=== PATIENT | male | born 1955 | race Caucasian/White ===

== ENCOUNTER 2023-07-30 06:10 | Day surgery (SDC) | payer BC, MEDICARE, SELFPAY ==
--- NOTE | 2023-06-26 11:02 | CM ---
Patient is scheduled for cervical spine surgery on 07/30/23. Spoke with patient prior to surgery via telephone. Introduced role of the Orthopedic Navigator. Patient reports that he lives with his in a two story home. There are two steps to enter
and a flight of steps to the second floor. He currently functions independently. He has a cervical collar. He has never had VN services.
Discussed orthopedic program, post surgical plans and tentative plan for patient to return home when directed by surgeon. Patient is in agreement with tentative plan and will have support from his when he goes home.
Plan: Orthopedic Navigator will remain available to assist with the care of patient and will reassess discharge needs after surgery.
[2023-07-14 09:46] VITALS: BMI 37.5
[2023-07-14 10:33] LABS: Hematocrit 41.2 % (39.0-52.0); Hemoglobin 13.9 g/dL (13.0-18.0); Mean Corp Hgb Conc. 33.7 g/dL (33.0-37.0); Mean Corpuscular Hgb 30.3 pg (27.0-31.0); Mean Corpuscular Volume 89.8 fL (80.0-94.0); Mean Platelet Volume 10.6 fL (7.4-10.4); Platelet Count 181 10^3/uL (130-400); Red Blood Cell Count 4.59 10^6/uL (4.70-6.10); Red Cell Dist. Width 12.6 % (11.5-14.5); White Blood Cell Count 5.5 10^3/uL (4.8-10.8)
[2023-07-14 10:57] LABS: ALT (SGPT) 33 U/L (0-50); AST (SGOT) 29 U/L (17-59); Alkaline Phosphatase 79 U/L (38-126); Blood Urea Nitrogen 25 mg/dl (9-20); Calcium 9.9 mg/dl (8.4-10.2); Carbon Dioxide 27 mmol/L (22-30); Chloride 106 mmol/L (98-107); Estimated Creatinine Clearance 68 ml/min; Glucose 90 mg/dl (70-99); Potassium 3.9 mmol/L (3.5-5.1); Sodium 137 mmol/L (135-145); Total Bilirubin 1.1 mg/dl (0.2-1.3); eGFR > 60.00
[2023-07-14 14:56] VITALS: BMI 37.5
[2023-07-30] VITALS (16 sets, daily range): BP systolic 110–154; BP diastolic 64–82; PULSE 82–89; O2SAT 94–96
[2023-07-30] MEDS: TYLENOL 1000 MG PO (09:34)
[2023-07-30] MEDS: SKELAXIN 800 MG PO (09:34)
[2023-07-30] MEDS: CELEBREX 200 MG PO (09:34)
[2023-07-30] MEDS: LYRICA 150 MG PO (09:35)
[2023-07-30] MEDS: NORMOSOL-R 1000 IV ×3 (09:36→22:45)
--- NOTE | 2023-07-30 11:38 | CM ---
Reviewed chart. Patient is here for planned cervical spine surgery with Dr. Chase. Met with patient at bedside. Confirmed information previously obtained for assessment and discussed discharge plans. Patient continues to plan to return home at
discharge. He will have support from his (who is a nurse) when he goes home. Reviewed that he will work with PT/OT after surgery and that discharge needs will depend on his functional status. However, no needs currently identified.
Patient has a cervical collar. He has access to a cane and rolling walker if either are needed.
Patient will use [facility] pharmacy for discharge prescriptions.
[2023-07-30] MEDS: ULTRAM 50 MG PO ×2 (14:55→20:00)
[2023-07-30] MEDS: TYLENOL PO ×2 (16:44→21:41)
[2023-07-30] MEDS: LIPITOR 80 MG PO (17:43)
[2023-07-30] MEDS: ULTRAM PO (17:47)
[2023-07-30] MEDS: ANCEF 5 IV (18:23)
[2023-07-30] MEDS: SENOKOT 17.1999999999999993 MG PO (19:48)
[2023-07-30] MEDS: COLACE 100 MG PO (19:48)
--- NOTE | 2023-07-30 20:01 | PTCARENOTE ---
Received patient from PACU around 1400 via bed in stable condition. Soft cervical collar in place. Dressing C/D/I. Patient oriented to room. Call de la torre in reach.
[2023-07-30] MEDS: NEURONTIN 400 MG PO (21:34)
[2023-07-30] MEDS: LYRICA 75 MG PO (21:34)
[2023-07-31] MEDS: ULTRAM PO ×2 (02:00→06:28)
[2023-07-31 03:05] VITALS: BP 124/70
[2023-07-31] MEDS: ANCEF 5 IV (03:54)
[2023-07-31] MEDS: TYLENOL 1000 MG PO ×2 (03:55→09:07)
[2023-07-31 04:56] LABS: Hematocrit 39.3 % (39.0-52.0); Hemoglobin 13.6 g/dL (13.0-18.0)
[2023-07-31 05:31] LABS: Blood Urea Nitrogen 19 mg/dl (9-20); Calcium 9.1 mg/dl (8.4-10.2); Carbon Dioxide 26 mmol/L (22-30); Chloride 97 mmol/L (98-107); Estimated Creatinine Clearance 81 ml/min; Glucose 136 mg/dl (70-99); Potassium 3.5 mmol/L (3.5-5.1); Sodium 136 mmol/L (135-145); eGFR > 60.00
[2023-07-31 08:00] VITALS: BP 122/61
[2023-07-31] MEDS: COLACE 100 MG PO (08:58)
[2023-07-31] MEDS: NORMOSOL-R IV (08:59)
[2023-07-31] MEDS: TOPROL XL 25 MG PO (08:59)
[2023-07-31] MEDS: SENOKOT 17.1999999999999993 MG PO (08:59)
[2023-07-31] MEDS: NEURONTIN 400 MG PO (08:59)
[2023-07-31] MEDS: LYRICA 75 MG PO (09:07)
[2023-07-31] MEDS: ULTRAM 50 MG PO (09:07)
--- NOTE | 2023-07-31 10:07 | CM ---
Reviewed chart and held rounds with PT and OT. Patient is here for planned cervical spine surgery with Dr. Chase. Met with patient at bedside. Confirmed information previously obtained for assessment and discussed discharge plans. Patient continues
to plan to return home at discharge. He will have support from his (who is a nurse) when he goes home. Reviewed that he will work with PT/OT after surgery and that discharge needs will depend on his functional status. However, no needs
currently identified.
Patient has a cervical collar. He has access to a cane and rolling walker if either are needed.
Patient will use [facility] pharmacy for discharge prescriptions.
--- NOTE | 2023-07-31 11:49 | W.PN.ORTHO ---
Today's Communication / Plan
-
d/c
Assessment
.
Distal Motor Intact: Yes
Dressing:
Clean, dry and intact.
Plan
.
Surgery / Date: C4-5 anterior fusion, partial corpectomy of C5.
Activity:
Out of bed.
PT/OT
Discharge Plan: Home
Subjective
.
.:
Patient resting comfortably.
Vital Signs and Labs
.
Vital Signs and Labs:
Lab Results
07/31/23 03:47
07/31/23 03:47
Temp Pulse Resp BP Pulse Ox
97.9 F 77 16 121/66 94
07/31/23 08:00 07/31/23 08:59 07/31/23 08:00 07/31/23 08:59 07/31/23 08:00
Physical Exam
-
HEENT: No pallor, cyanosis, or jaundice. Throat clear.
NECK: Supple. No JVD.
RESPIRATORY: Lungs clear to auscultation.
CVS: S1, S2 normal. RRR.� No murmur, rub or gallop.
ABDOMEN: Soft, non-tender. No distension. BS+/normal.
EXTREMITIES: strength equal, no calf pain with palpation
KNOT TIER: AOx3. No focal deficits. mainspring winder grossly intact
--- NOTE | 2023-07-31 11:55 | W.DS.TRANS ---
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
-
Discharge Instructions:
Sleep Apnea Risk Intermediate
Discharge Diagnosis/Procedures C4-5 anterior fusion, partial corpectomy of C5
Dr. Chase 07/30/23
Diet As tolerated
Activity No strenuous activity
Driving Restrictions No driving
Instructions:
Stand-Alone Forms: [facility] Cervical D/C Inst.
Changes to Home Medications: Yes
Discharge Medications:
DC Medications w/original date entered in [employer]
atorvastatin 40 mg tablet 80 mg PO QPM 12/27/09
metoprolol succinate 50 mg tablet,extended release 24 hr 50 mg PO DAILY 12/27/09
aspirin 81 mg chewable tablet 81 mg PO DAILY 07/09/23
gabapentin 100 mg capsule 200 mg PO DAILY 07/09/23
gabapentin 400 mg capsule 400 mg PO HS 07/09/23
multivitamin 1 tab PO DAILY 07/09/23
triamterene 50 mg capsule 100 mg PO DAILY 07/09/23
Saccharomyces boulardii 250 mg capsule (Florastor) 250 mg PO BID #1 cap 07/31/23
acetaminophen 325 mg capsule (Tylenol) 650 mg (2 x 325 mg) PO QID #2 caps 07/31/23
cephalexin 500 mg capsule 500 mg PO QID infection prevention #20 caps 07/31/23
docusate sodium 100 mg capsule (Colace) 100 mg PO BID stool softner #1 cap 07/31/23
magnesium hydroxide 400 mg/5 mL oral suspension (Milk of Magnesia) 30 ml PO HS PRN Constipation #1 mL 07/31/23
sennosides 8.6 mg tablet (Senokot) 17.2 mg (2 x 8.6 mg) PO BID laxative #2 tabs 07/31/23
tramadol 50 mg tablet 50 mg PO Q6H PRN 1 tab moderate pain, 2 if severe #20 tabs 07/31/23
Home Medication Changes
cephalexin 500 mg capsule 500 mg PO QID infection prevention #20 caps 07/31/23
tramadol 50 mg tablet 50 mg PO Q6H PRN 1 tab moderate pain, 2 if severe #20 tabs 07/31/23
Pending Results: No
[2023-07-31 12:00] VITALS: BP 114/55
[2023-07-31 12:16] VITALS: BP 130/62; PULSE 60; O2SAT 97
[2023-07-31 21:41] LABS: Hepatitis C Antibody Negative (Negative)
== END 2023-07-31 13:29 | disposition home or self-care (01) ==
LOC: SDS 06:10
PROVIDERS: ATTENDING PHYSICIAN Orthopaedic Surgery Orthopaedic Surgery of the Spine; FAMILY PHYSICIAN Family Medicine; OTHER PHYSICIAN Physician Assistant Medical
DX: M47.12 Other spondylosis with myelopathy, cervical region (principal)
CPT/HCPCS: 63081; 22554; 22853; 20930; 36415; 72020; 80048; 80053; 85014; 85018; 85027; 86803; 87070; 93005; 97116; 97162; 97166; C1713

== ENCOUNTER 2023-09-30 17:44 | Outpatient (RCR) | payer BC, SELFPAY | END 2023-09-30 23:59 | disposition home or self-care (01) | LOC: RPT 17:44 | PROVIDERS: ATTENDING PHYSICIAN Orthopaedic Surgery Orthopaedic Surgery of the Spine | DX: M54.2 Cervicalgia (principal); M62.81 Muscle weakness (generalized); Z73.6 Limitation of activities due to disability | CPT/HCPCS: 97010; 97110; 97112; 97140; 97162; 97166; 97535 ==

== ENCOUNTER 2023-10-30 16:57 | Outpatient (RCR) | payer BC, SELFPAY | END 2023-10-30 23:59 | disposition home or self-care (01) | LOC: RPT 16:57 | PROVIDERS: ATTENDING PHYSICIAN Orthopaedic Surgery Orthopaedic Surgery of the Spine | DX: M47.12 Other spondylosis with myelopathy, cervical region (principal); Z73.6 Limitation of activities due to disability; M62.81 Muscle weakness (generalized) | CPT/HCPCS: 97010; 97110; 97112; 97140; 97535 ==

== ENCOUNTER 2023-12-01 07:58 | Outpatient (RCR) | payer BC, SELFPAY | END 2023-12-03 18:05 | disposition home or self-care (01) | LOC: RPT 07:58 | PROVIDERS: ATTENDING PHYSICIAN Orthopaedic Surgery Orthopaedic Surgery of the Spine | DX: M47.12 Other spondylosis with myelopathy, cervical region (principal); M43.16 Spondylolisthesis, lumbar region; M48.062 Spinal stenosis, lumbar region with neurogenic claudication; Z98.1 Arthrodesis status; M48.02 Spinal stenosis, cervical region; Z73.6 Limitation of activities due to disability; M62.81 Muscle weakness (generalized) | CPT/HCPCS: 97110; 97112; 97164; 97530 ==

== ENCOUNTER 2023-12-30 17:52 | Outpatient (RCR) | payer BC, SELFPAY | END 2023-12-30 23:59 | disposition home or self-care (01) | LOC: RPT 17:52 | PROVIDERS: ATTENDING PHYSICIAN Orthopaedic Surgery Orthopaedic Surgery of the Spine | DX: M47.12 Other spondylosis with myelopathy, cervical region (principal); M43.16 Spondylolisthesis, lumbar region; M48.062 Spinal stenosis, lumbar region with neurogenic claudication; Z98.1 Arthrodesis status; M48.02 Spinal stenosis, cervical region; Z73.6 Limitation of activities due to disability | CPT/HCPCS: 97110; 97112; 97140; 97530 ==

== ENCOUNTER 2024-01-27 17:41 | Outpatient (RCR) | payer BC, SELFPAY | END 2024-01-27 23:59 | disposition home or self-care (01) | LOC: RPT 17:41 | PROVIDERS: ATTENDING PHYSICIAN Orthopaedic Surgery Orthopaedic Surgery of the Spine | DX: Z47.89 Encounter for other orthopedic aftercare (principal); M47.12 Other spondylosis with myelopathy, cervical region; M43.16 Spondylolisthesis, lumbar region; M48.062 Spinal stenosis, lumbar region with neurogenic claudication; Z73.6 Limitation of activities due to disability; Z98.1 Arthrodesis status | CPT/HCPCS: 97110; 97112; 97140; 97530 ==